=== PATIENT | female | born 1965 | race Two or more races ===

== ENCOUNTER 2019-09-17 19:28 | Inpatient (IN) | payer MEDICARE, OTHER ==
[~2019-09-17] VITALS: Ht 157.5 cm; Wt 56.9 kg
[2019-09-17] MEDS ORDERED: KETOROLAC TROMETHAMINE 15 MG/ML VIAL ONE (19:43)
[2019-09-17] MEDS ORDERED: ONDANSETRON HCL/PF 4 MG/2 ML VIAL ONE (19:43)
--- NOTE | 2019-09-17 19:45 | NUR ---
PT AAOX3. [id number]. PER RA PT HAD SYNCOPAL EPISODE FOUND DOWN IN BATHRROM COVERED WITH VOMIT. UPON ASSESSMTN RR EVEN AND UNLABORED, NO NEURO DEFICIT, PERRLA. SKIN WARM AND INTACT. PLACED IN GOWN AND ON MONITOR. MD AT BEDSIDE FOR EVAL. WILL CONTINUE TO MONITOR. VSS.
--- NOTE | 2019-09-17 19:52 | NUR ---
FLUDIS INITITATED, MEDS GIVE, AWAITING URINE SAMPLE.
[2019-09-17] MEDS ORDERED: KETOROLAC TROMETHAMINE INJ 30 MG/ML VIAL IV ONE (20:00)
[2019-09-17] MEDS ORDERED: IV NS 0.9% 1,000 ML BAG IV ONE (20:00)
[2019-09-17] MEDS ORDERED: ONDANSETRON HCL/PF 4 MG/2 ML VIAL IVP ONE (20:00)
--- NOTE | 2019-09-17 20:04 | NUR ---
BROUGHT TO CT
--- NOTE | 2019-09-17 20:05 | NUR ---
Nola rosa in [place] - 09/17/19 at 2015 by JIM [employer] HUMANITIES TEACHER AT BEDSIDE FOR LABS
--- NOTE | 2019-09-17 20:15 | NUR ---
BACK FROM CT
[2019-09-17 20:25] LABS: BASOPHILS # (AUTO) 0.1 /CMM (0.0-0.2); BASOPHILS % (AUTO) 1.4 % (0.0-2.0); EOSINOPHILS % (AUTO) 2.2 % (0.0-6.0); HEMATOCRIT 41 % (33-45); HEMOGLOBIN 13.2 g/dL (11.5-14.8); LYMPHOCYTES # (AUTO) 1.2 /CMM (0.8-4.8); LYMPHOCYTES % (AUTO) 22.9 % (20.0-44.0); MEAN CORPUSCULAR HGB CONC 33 g/dl (31.0-36.0); MEAN CORPUSCULAR VOLUME 86 fL (82-100); MONOCYTES # (AUTO) 0.4 /CMM (0.1-1.30); MONOCYTES % (AUTO) 6.8 % (2.0-12.0); NEUTROPHILS # (AUTO) 3.6 /CMM (1.8-8.9); NEUTROPHILS % (AUTO) 66.7 % (43.0-81.0); PLATELET COUNT (AUTO) 210 /CMM (150-450); RED BLOOD CELL COUNT(AUTO) 4.76 MIL/uL (4.0-5.2); WHITE BLOOD COUNT (AUTO) 5.4 K/uL (4.3-11.0)
[2019-09-17 20:36] LABS: CALCIUM, SERUM 9.1 mg/dL (8.5-10.1); CARBON DIOXIDE 31 mmol/L (21-32); CHLORIDE 108 mmol/L (98-107); CREATININE 1.1 mg/dL (0.6-1.3); GLUCOSE 121 mg/dL (74-106); POTASSIUM 3.9 mmol/L (3.5-5.1); SODIUM SERUM 146 mmol/L (136-145); UREA NITROGEN, BLOOD 14 mg/dL (7-18)
[2019-09-17 20:49] LABS: ALANINE AMINOTRANSFERASE 26 U/L (12-78); ALBUMIN 3.9 g/dL (3.4-5.0); ALKALINE PHOSPHATASE 98 U/L (46-116); ASPARTATE AMINOTRANSFERASE 19 U/L (15-37); BILIRUBIN,TOTAL 0.2 mg/dL (0.2-1.0); LIPASE 108 U/L (73-393); TOTAL PROTEIN, SERUM 7.5 g/dL (6.4-8.2)
[2019-09-17] MEDS ORDERED: FLUO20CA42 PO (21:19)
[2019-09-17] MEDS ORDERED: HYDR-3895 PO (21:19)
--- NOTE | 2019-09-17 21:19 | NUR ---
BED 304-2
[2019-09-17] MEDS ORDERED: RISP1TAB27 PO (21:20)
[2019-09-17] MEDS ORDERED: LORAZEPAM INJ 2 MG/ML VIAL ONE (21:22)
--- NOTE | 2019-09-17 21:27 | NUR ---
PT UNABLE TO PROVIDE URINE SAMPLE. REFUSES CATHETER.
[2019-09-17] MEDS ORDERED: LORAZEPAM INJ 2 MG/ML VIAL IV ONE (21:30)
--- NOTE | 2019-09-17 21:35 | NUR ---
REPORT GIVEN TO SHALINI BUENROSTRO FOR AMELIA
[2019-09-17 21:42] VITALS: BP 98/59
--- NOTE | 2019-09-17 21:45 | NUR ---
CLINICAL PROGRAM MANAGERSENIOR IT SPECIALIST NOTES PATIENT ARRIVED ON UNIT VIA GURNEY FROM THE ER AT 2142 IN STABLE CONDITION. PATIENT UNABLE TO AMBULATE AT THIS TIME. A/O X 3-4. ON ROOM AIR. PATIENT DENIES ANY SOB OR PAIN AT THIS TIME. TELE MONITOR READING SINUS RHYTHM, HEART RATE 71. IV PRESENT ON LEFT AC, SIZE 18, INTACT & PATENT, NS RUNNING BY GRAVITY. SKIN ASSESSMENT COMPLETED, NO PROBLEMS NOTED. BELONGINGS LIST COMPLETED, SIGNED, AND PLACED IN CHART. SISTER, DOROTHY, BROUGHT PATIENT'S PURSE HOME. MED RECON AND MRSA SURVEILLANCE COMPLETED IN THE ER. SAFETY MEASURES IN PLACE. BED LOCKED, ALARM ON, SEMI-RABAGO'S POSITION, CALL LIGHT WITHIN REACH. WILL CONTINUE TO MONITOR.
--- NOTE | 2019-09-17 21:57 | NUR ---
PT TRANSFERED PER ACLS PROTOCOL.
[2019-09-17 22:00] VITALS: BP 98/59
[2019-09-17] MEDS ORDERED: MAGNESIUM HYDROXIDE 30 ML UDC PO PRN (22:00)
[2019-09-17] MEDS ORDERED: ACETAMINOPHEN 325 MG TABLET PO PRN (22:00)
[2019-09-17] MEDS ORDERED: Z GUARD REMEDY 2 OZ OINT TP PRN (22:00)
[2019-09-17] MEDS ORDERED: MAG HYDROX/AL HYDROX/SIMETH 30 ML UDC PO PRN (22:00)
[2019-09-17] MEDS ORDERED: IV NS 0.9% 1,000 ML IV ONE (22:00)
[2019-09-17] MEDS ORDERED: ONDANSETRON HCL/PF 4 MG/2 ML VIAL IVP PRN (22:00)
[2019-09-18] VITALS: BP 92/45
[2019-09-18] MEDS ORDERED: IV NS 0.9% 1,000 ML IV SCH
[2019-09-18 04:00] VITALS: BP 99/53
[2019-09-18 06:25] LABS: BASOPHILS # (AUTO) 0.1 /CMM (0.0-0.2); BASOPHILS % (AUTO) 0.9 % (0.0-2.0); HEMATOCRIT 33 % (33-45); LYMPHOCYTES # (AUTO) 2.1 /CMM (0.8-4.8); LYMPHOCYTES % (AUTO) 32.3 % (20.0-44.0); MEAN CORPUSCULAR HGB CONC 33 g/dl (31.0-36.0); MEAN CORPUSCULAR VOLUME 85 fL (82-100); MONOCYTES # (AUTO) 0.4 /CMM (0.1-1.30); MONOCYTES % (AUTO) 5.8 % (2.0-12.0); NEUTROPHILS # (AUTO) 3.9 /CMM (1.8-8.9); PLATELET COUNT (AUTO) 165 /CMM (150-450); RED BLOOD CELL COUNT(AUTO) 3.92 MIL/uL (4.0-5.2); WHITE BLOOD COUNT (AUTO) 6.5 K/uL (4.3-11.0)
[2019-09-18 06:50] LABS: CREATININE 0.6 mg/dL (0.6-1.3); MAGNESIUM 1.8 mg/dL (1.8-2.4); PHOSPHORUS 3.7 mg/dL (2.5-4.9); POTASSIUM 3.6 mmol/L (3.5-5.1)
--- NOTE | 2019-09-18 07:29 | NUR ---
RESIDENTIAL APPRAISER CLOSING NOTES PATIENT AWAKE IN BED. A/O X3-4. ON ROOM AIR. NO C/O OF SOB OR PAIN AT THIS TIME. IV PRESENT ON LEFT AC, SIZE 18, INTACT & PATENT, NS RUNNING AT 125 ML/HR. TELE MONITOR READING SINUS RHYTHM, HEART RATE 62. SAFETY MEASURES IN PLACE. BED LOCKED, ALARM ON, SIDE RAILS X2, CALL LIGHT WITHIN REACH. WILL ENDORSE TO DAY SHIFT NURSE TO FOLLOW PLAN OF CARE.
[2019-09-18] MEDS: HYDROCODONE/APAP 5/325MG 1 EACH TABLET PO PRN ×2 (07:46→14:20)
--- NOTE | 2019-09-18 08:00 | NUR ---
KEY OPERATOR OPENING NOTES RECIEVED PATIENT AWAKE IN BED. A/O X3-4. ON ROOM AIR. NO CARDIAC OR RESP DISTRESS NOTED. NOSOB. . IV ACCESS NOTED ON LEFT AC, SIZE 18, INTACT & PATENT, FLUSHING WELL. NO S/S OF INFECTION OR INFILTRATION NOTED. NS RUNNING AT 125 ML/HR. TELE MONITOR READING SINUS RHYTHM, HEART RATE 75. SAFETY MEASURES IN PLACE. BED LOCKED, ALARM ON, SIDE RAILS X2, CALL LIGHT WITHIN REACH.
[2019-09-18] MEDS: FLUOXETINE HCL 20 MG CAPSULE PO SCH (08:13)
[2019-09-18] MEDS: hydrOXYzine PAMOATE 25 MG CAPSULE PO SCH (08:13)
[2019-09-18] MEDS: risperiDONE 1 MG TABLET PO SCH (08:13)
[2019-09-18] MEDS ORDERED: INFLUENZA VACCINE 2019-20 0.5 ML DISP.SYRIN IM ONE (09:00)
--- NOTE | 2019-09-18 09:00 | NUR ---
FLU VACCINE FLU VACCINE ADMINISTERED. PT GAVE CONSENT.
--- NOTE | 2019-09-18 10:30 | NUR ---
BLADDER SCAN NOTIFIED NOEMI DIXON THAT PT HAS NOT VOIDED SINCE 7AM. PER NOEMI TO DO BLADDER SCAN. BLADDER SCAN DONE >250ML URINE NOTED
[2019-09-18] MEDS: IV NS 0.9% 1,000 ML IV PRN (10:35)
--- NOTE | 2019-09-18 10:49 | NUR ---
FELT DYEING MACHINE TENDER OPENING NOTES RECIEVED PATIENT AWAKE IN BED. A/O X3-4. ON ROOM AIR. NO CARDIAC OR RESP DISTRESS NOTED. NOSOB. . IV ACCESS NOTED ON LEFT AC, SIZE 18, INTACT & PATENT, FLUSHING WELL. NO S/S OF INFECTION OR INFILTRATION NOTED. NS RUNNING AT 125 ML/HR. TELE MONITOR READING SINUS RHYTHM, HEART RATE 75. SAFETY MEASURES IN PLACE. BED LOCKED, ALARM ON, SIDE RAILS X2, CALL LIGHT WITHIN REACH. Addendum: 09/18/19 at 1051 by DEVAN GUTIERREZ RN DISREGARD ABOVE NOTE. TIME IS INCORRECT
--- NOTE | 2019-09-18 11:00 | NUR ---
STRAIGHT CATH NOTIFIED NOEMI GUTIERREZ RE: BLADDER SCAN RESULTS. STRAIGHT CATH DONE X1. 50ML URINE OUTPUT. URINE COLLECTED FOR UACS.
[2019-09-18 12:00] VITALS: BP 89/51
[2019-09-18 14:35] LABS: APPEARANCE,URINE CLEAR (CLEAR); BILIRUBIN,URINE NEGATIVE (NEGATIVE); BLOOD, URINE NEGATIVE Ery/uL (NEGATIVE); COLOR,URINE YELLOW (YELLOW); KETONES,URINE NEGATIVE (NEGATIVE); LEUKOCYTE ESTERASE ,URINE NEGATIVE (NEGATIVE); NITRITE, URINE NEGATIVE (NEGATIVE); PH,URINE 7.5 (5.0-8.0); PROTEIN,URINE TRACE mg/dl (NEGATIVE); UGLUCOSE 100 MG/DL mg/dL (NEGATIVE); UROBILINOGEN,URINE 0.2 EU/dL (0.2)
[2019-09-18 14:50] LABS: BACTERIA,URINE Few /HPF (None Seen); SQUAMOUS EPITHELIAL CELL,UR Few /HPF (None Seen); WBC,URINE 0-2 /HPF (0-3)
--- NOTE | 2019-09-18 15:00 | NUR ---
URINE OUTPUT ASSISTED PT TO BEDPAN. PT HAD 300ML URINE OUTPUT.
[2019-09-18 16:05] VITALS: BP 86/55
--- NOTE | 2019-09-18 18:37 | NUR ---
SERVER ENGINEER CLOSING NOTES PATIENT IN AWAKE IN BED. A/O X3-4. ON ROOM AIR. NO CARDIAC OR RESP DISTRESS NOTED. NO SOB. . IV ACCESS NOTED ON R WRIST G22. , INTACT & PATENT, FLUSHING WELL. NO S/S OF INFECTION OR INFILTRATION NOTED. NS RUNNING AT 125 ML/HR. TELE MONITOR READING SINUS RHYTHM, HEART RATE 75. SAFETY MEASURES IN PLACE. BED LOCKED, ALARM ON, SIDE RAILS X2, CALL LIGHT WITHIN REACH.
--- NOTE | 2019-09-18 19:35 | NUR ---
MATERIALS ASSISTANT OPENING NOTES PATIENT RECEIVED RESTINGI N BED A/O X 3-4. STABLE ON RA WITH BREATHING EVEN AND UNLABORED, NO SOB NOTED. NO SIGNS OF ACUTE DISTRESS. NO CURRENT COMPLAINTS OF PAIN OR DISCOMFORT. TELE MONITOR READING SR. IV LOCATED ON R WRIST #24 RUNNING NS @ 125 ML/HR. SAFETY PRECAUTIONS IN PLACE WITH BREATHING EVEN AND UNLABORED, CALL LIGHT WITHIN REACH, BREAKS ON, SIDE RAILS UP. WILL CONTINUE TO MONITOR.
[2019-09-18 20:00] VITALS: BP 91/60
--- NOTE | 2019-09-18 22:23 | NUR ---
SCIENTIFIC RESEARCH ASSOCIATE NOTES PATIENT COMPLAINING OF LOWER ABDOMINAL DISCOMFORT, CLAIMED SHE HAD NOT PEED SINCE BEFORE DINNER AROUND 6PM. BLADDER SCANNER DONE, SHOWED URINE RETENTION OF >893. PAGED MD ROMAN AND ORDERED TO STRAIGHT CATH X1.
--- NOTE | 2019-09-18 22:43 | NUR ---
LIAISON ENGINEER NOTES STRAIGHT CATH DONE, 1000L OF CLEAR YELLOW URINE DRAINED. PATIENT FEELS MORE COMFORTABLE AND RELIEVED. WILL CONTINUE TO MONITOR.
[2019-09-19] VITALS: BP 95/60
[2019-09-19] MEDS: IV NS 0.9% 1,000 ML IV PRN (02:13)
[2019-09-19 04:00] VITALS: BP 91/54
--- NOTE | 2019-09-19 06:26 | NUR ---
PROFESSIONAL CASTER CLOSING NOTES PATIENT RESTING IN BED A/O X 3-4. STABLE ON RA WITH BREATHING EVEN AND UNLABORED, NO SOB NOTED. NO SIGNS OF ACUTE DISTRESS. NO CURRENT COMPLAINTS OF PAIN OR DISCOMFORT. TELE MONITOR READING SR. IV LOCATED ON R WRIST #24 RUNNING NS @ 125 ML/HR. SAFETY PRECAUTIONS IN PLACE WITH BREATHING EVEN AND UNLABORED, CALL LIGHT WITHIN REACH, BREAKS ON, SIDE RAILS UP. ALL NEEDS WERE ATTENDED TO AND PATIENT WAS KEPT CLEAN AND DRY ALL NIGHT. WILL ENDORSE TO ONCOMING SHIFT ABOUT AMELIA.
[2019-09-19 06:46] LABS: BASOPHILS % (AUTO) 0.8 % (0.0-2.0); EOSINOPHILS % (AUTO) 3.4 % (0.0-6.0); HEMATOCRIT 32 % (33-45); HEMOGLOBIN 10.6 g/dL (11.5-14.8); LYMPHOCYTES # (AUTO) 1.5 /CMM (0.8-4.8); LYMPHOCYTES % (AUTO) 35.7 % (20.0-44.0); MEAN CORPUSCULAR HGB CONC 33 g/dl (31.0-36.0); MEAN CORPUSCULAR VOLUME 86 fL (82-100); MONOCYTES # (AUTO) 0.3 /CMM (0.1-1.30); MONOCYTES % (AUTO) 7.2 % (2.0-12.0); NEUTROPHILS # (AUTO) 2.2 /CMM (1.8-8.9); NEUTROPHILS % (AUTO) 52.9 % (43.0-81.0); PLATELET COUNT (AUTO) 140 /CMM (150-450); RED BLOOD CELL COUNT(AUTO) 3.76 MIL/uL (4.0-5.2); WHITE BLOOD COUNT (AUTO) 4.2 K/uL (4.3-11.0)
[2019-09-19 07:00] VITALS: BP_SYST 101; BP_SYST 90; BP_SYST 97; BP_DIAS 61; BP_DIAS 67; BP_DIAS 68
--- NOTE | 2019-09-19 07:25 | NUR ---
ELECTROMECHANIC OPENING NOTES RECEIVED PT IN BED, ASLEEP. EASILY AROUSED, A/O X3. PT TOLERATING RA, WITH NO ACUTE RESPIRATORY DISTRESS NOTED. ON TELEMONITORING WITH SB 57. PT DENIES ANY PAIN OR DISCOMFORT AT THIS TIME WEEL. PT ALSO DENIES ANY CONCERNS OR QUESTION AT THIS TIME. IVF NS AT 125ML/HR TO RIGHT WRIST G24, INTACT AND INFUSING WELL. PT COMFORTABLE IN BED AT THIS TIME. PT'S BED IN LOWEST, LOCKED POSITION WITH SRX3. CALL LIGHT KEPT WITHIN REACH. WILL CONTINUE PLAN OF CARE.
[2019-09-19 07:27] LABS: CALCIUM, SERUM 7.8 mg/dL (8.5-10.1); CREATININE 0.7 mg/dL (0.6-1.3); POTASSIUM 4.2 mmol/L (3.5-5.1)
[2019-09-19 08:00] VITALS: BP 90/61
[2019-09-19] MEDS: FLUOXETINE HCL 20 MG CAPSULE PO SCH (08:33)
[2019-09-19] MEDS: hydrOXYzine PAMOATE 25 MG CAPSULE PO SCH (08:33)
[2019-09-19] MEDS: risperiDONE 1 MG TABLET PO SCH (08:33)
--- NOTE | 2019-09-19 08:37 | NUR ---
PACKING MACHINE CAN FEEDER NOTES PT SEEN AND EVALUATED [place] HOSPITALIST/CN/WINDOWS SERVER ENGINEER, PT MADE AWARE OF PLAN TODAY. PT ADVISED TO FOLLOW UP WITH OUTPATIENT PSYCHOLOGIST/PSYCHIATRIST AND PCP. PLAN FOR DISCHARGE TODAY, PT AWARE.
--- NOTE | 2019-09-19 10:31 | NUR ---
MATERIAL FLOW ANALYST NOTES CALLED AND LEFT A MESSAGE VIA PHONE FOR SISTER/DOROTHY REGARDING PT'S DISCHARGE.
[2019-09-19 15:51] VITALS: BP 85/49
--- NOTE | 2019-09-19 17:23 | NUR ---
CUP TRIMMING MACHINE OPERATOR NOTES PT TO GO HOME. PT A/O X3-4. PT TOLERATING RA, WITH NO ACUTE RESPIRATORY DISTRESS NOTED. PT DENIES ANY PAIN OR DISCOMFORT AT THIS TIME WELL. PT AND SISTER ALSO DENIES ANY CONCERNS OR QUESTION AT THE TIME OF DISCHARGE. PIV TO R WRIST G22, REMOVED AND PRESSURE DRESSING APPLIED. ALL NEEDS AND CARE ATTENDED. DISCHARGE INSTRUCTIONS AND INVENTORY LIST WERE REVIEWED AND SIGNED BY PT, WITNESSED BY SISTER AT BEDSIDE. VS STABLE AND RECORDED. SKIN INTACT, NO PICTURES TAKEN AND FILED. HOSPITALIST/CN/BIOINFORMATICIST AND CN/KA AWARE OF DISCHARGE. PT LEFT THE UNIT AT 1720, ESCORTED BY USER EXPERIENCE DEVELOPER TO THE LOBBY.
== END 2019-09-19 17:20 | disposition home or self-care (01) | DRG 74 ==
LOC: ER 19:31 → TELE 21:23
PROVIDERS: ADMIT Family Medicine; ATTEND Nurse Practitioner Acute Care
DX: G90.8 Other disorders of autonomic nervous system (principal); E87.0 Hyperosmolality and hypernatremia; F33.3 Major depressive disorder, recurrent, severe with psychotic symptoms; E86.1 Hypovolemia; R73.9 Hyperglycemia, unspecified; I95.1 Orthostatic hypotension; Z87.440 Personal history of urinary (tract) infections; R33.9 Retention of urine, unspecified; F39 Unspecified mood [affective] disorder
CPT/HCPCS: 36415; 70450-TC; 71045-TC; 72170-TC; 73130-TC; 80048-TC; 80061-TC; 80076-TC; 81000-TC; 83690-TC; 83735-TC; 84100-TC; 84484-TC; 85025-TC; 85730-TC; 87081-TC; 87086-TC; 93307-TC; 93880-TC; 97530-TC; G0378; G0480; J1885; J2060; J2405; J3490; J7030; Q0177; Q2036

== ENCOUNTER 2020-09-05 20:50 | Inpatient (IN) | payer MEDICARE, OTHER ==
[~2020-09-05] VITALS: Ht 165.1 cm; Wt 63.5 kg
[~2020-09-05 20:50] MED LIST: FLUO20CA42 PO; HYDR-3895 PO; RISP1TAB97 PO
--- NOTE | 2020-09-05 20:51 | NUR ---
PT DEBBIE FROM THE [facility] FOR MEDICAL CLEARANCE. PT PLACED ON HOLD FOR GD AT 1954. PER HOLD PT DOES NOT SPEAK WHEN SPOKEN TO AND IS NON COMPLAINT. ALSO, NOT TAKING MEDICATIONS AND WAS FOUND TRYING TO LEAVE THE FACILITY. UPON ASSESSMENT PT AMBULATORY, PLACED IN BED 10 ON MONITOR, AND PULSE OX. NO ACUTE DISTRESS NOTED. AWAITING ORDERS.
[2020-09-05 22:17] LABS: BASOPHILS # (AUTO) 0.1 /CMM (0.0-0.2); EOSINOPHILS % (AUTO) 1.8 % (0.0-6.0); HEMATOCRIT 37 % (33-45); HEMOGLOBIN 11.8 g/dL (11.5-14.8); LYMPHOCYTES # (AUTO) 1.4 /CMM (0.8-4.8); LYMPHOCYTES % (AUTO) 25.7 % (20.0-44.0); MEAN CORPUSCULAR HGB CONC 32 g/dl (31.0-36.0); MEAN CORPUSCULAR VOLUME 84 fL (82-100); MONOCYTES # (AUTO) 0.4 /CMM (0.1-1.30); MONOCYTES % (AUTO) 7.7 % (2.0-12.0); NEUTROPHILS # (AUTO) 3.4 /CMM (1.8-8.9); NEUTROPHILS % (AUTO) 63.8 % (43.0-81.0); PLATELET COUNT (AUTO) 223 /CMM (150-450); RED BLOOD CELL COUNT(AUTO) 4.33 MIL/uL (4.0-5.2); WHITE BLOOD COUNT (AUTO) 5.4 K/uL (4.3-11.0)
[2020-09-05 22:27] LABS: CALCIUM, SERUM 8.5 mg/dL (8.5-10.1); CARBON DIOXIDE 31 mmol/L (21-32); CHLORIDE 104 mmol/L (98-107); CREATININE 0.7 mg/dL (0.6-1.3); GLUCOSE 94 mg/dL (74-106); POTASSIUM 4.2 mmol/L (3.5-5.1); SODIUM SERUM 141 mmol/L (136-145); UREA NITROGEN, BLOOD 13 mg/dL (7-18)
[2020-09-05 22:32] LABS: ALANINE AMINOTRANSFERASE 24 U/L (12-78); ALBUMIN 3.4 g/dL (3.4-5.0); ALCOHOL, BLOOD < 3 mg/dL (0-0); ALKALINE PHOSPHATASE 122 U/L (46-116); ASPARTATE AMINOTRANSFERASE 16 U/L (15-37); BILIRUBIN,DIRECT 0.1 mg/dL (0.0-0.2); BILIRUBIN,TOTAL 0.1 mg/dL (0.2-1.0); TOTAL PROTEIN, SERUM 7.2 g/dL (6.4-8.2)
[2020-09-05 22:33] LABS: ACETAMINOPHEN < 2 ug/ml (10-30)
[2020-09-05 22:38] LABS: BILIRUBIN,URINE Negative (NEGATIVE); COLOR,URINE YELLOW (YELLOW); LEUKOCYTE ESTERASE ,URINE Moderate (NEGATIVE); NITRITE, URINE Negative (NEGATIVE); PH,URINE 5.5 (5.0-8.0); PROTEIN,URINE Negative (NEGATIVE); UGLUCOSE Negative (NEGATIVE); UROBILINOGEN,URINE 0.2 EU/dL (0.2)
--- NOTE | 2020-09-05 22:40 | NUR ---
COVID SWAB COLLECTED, CALLED LAB FOR FREIGHT REPRESENTATIVE
[2020-09-05 22:45] LABS: BACTERIA,URINE 2+ /HPF (None Seen); RBC,URINE NONE SEEN /HPF (0-2); SQUAMOUS EPITHELIAL CELL,UR Few /HPF (None Seen); WBC,URINE 21-50 /HPF (0-3)
--- NOTE | 2020-09-06 00:13 | NUR ---
REPORT GIVEN TO GIRMA ROGERS RN FOR AMELIA
[2020-09-06 00:40] VITALS: BP 109/63
--- NOTE | 2020-09-06 00:40 | NUR ---
GPS RN-ADMISSION NOTES: ADMITTED A 55-YR OLD FEMALE, FROM THE [facility]. ADMITTED ON 5150 FOR GD. PER HOLD, PATIENT WAS NOT COMPLIANT AND STARED BLANKLY INTO SPACE. PATIENT HAS NOT BEEN EATING OR TAKING MEDS. PT TOOK THE SCREEN OFF HER WINDOW ON THE 3RD FLOOR AND TOLD THE AID SHE WANTED TO . UPON FACE TO FACE ASSESSMENT, PATIENT IS A/OX2, DEPRESSED, NO VERBAL RESPONSE WHEN PT ASKED. OFFERED SNACKS/FLUIDS PT REFUSED. PT WAS ADVISED OF HER HOLD. PT'S RIGHTS HANDBOOK AND A GUIDE TO PRESCRIPTION MEDICATIONS GIVEN. IN NO APPARENT DISTRESS NOTED. BELONGINGS WERE INVENTORIED AND CHECKED FOR CONTRABAND. PT. IS UNDER THE PSYCHIATRIC CARE OF DR. PAULINE GONZALEZ, AND UNDER THE MEDICAL CARE OF DR. AGARWAL. PT REFUSED FULL BODY SKIN ASSESSMENT. PT REFUSING TO REMOVE HER EARRINGS AND RINGS. DENIES PAIN OR DISCOMFORT AT THIS TIME. SAFETY PRECAUTIONS IN PLACE. BED IN LOCKED AND IN LOWEST POSITION. SIDE RAILS UP X2. WILL CONTINUE TO MONITOR Q15 MIN ROUNDS FOR SAFETY AND BEHAVIOR. Addendum: 09/06/20 at 0223 by TORO VERGARA RN WHEN PATIENT ASKED WHEN SHE WAS ABLE TO RECEIVE HER FLU VACCINE, PATIENT WAS POINTED HER RIGHT DELTOID AND THEN SHE NODDED. Addendum: 09/06/20 at 0535 by [address]O [address] RN DR[address] AGARWAL MADE AWARE OF THE ADMISSION.
[2020-09-06] MEDS ORDERED: LORAZEPAM 0.5 MG TABLET PO PRN (01:00)
[2020-09-06] MEDS ORDERED: ACETAMINOPHEN 325 MG TABLET PO PRN (01:00)
[2020-09-06] MEDS ORDERED: MAGNESIUM HYDROXIDE 30 ML UDC PO PRN (01:00)
[2020-09-06] MEDS ORDERED: MAG HYDROX/AL HYDROX/SIMETH 30 ML UDC PO PRN (01:00)
[2020-09-06] MEDS ORDERED: BLOOD SUGAR DIAGNOSTIC 1 EACH STRIP IN ONE (01:00)
[2020-09-06] MEDS ORDERED: TEMAZEPAM 7.5 MG CAPSULE PO PRN (01:00)
[2020-09-06 07:56] LABS: CREATININE 0.6 mg/dL (0.6-1.3)
[2020-09-06 08:00] VITALS: BP 100/55
--- NOTE | 2020-09-06 12:15 | NUR ---
gps credit support counselor: md visit dr. rome here and reminded md that her medications needs to be reconciled, stated, "i will do it."
--- NOTE | 2020-09-06 12:45 | NUR ---
House Call MD: JOSEPH received a call from Felicia [phone]) from [facility] who stated that she wanted to know the pts behaviors and current discharge plan. JOSEPH stated that there is no discharge plan as of this moment and will inform her when she has one.
[2020-09-06] MEDS: CEPHALEXIN MONOHYDRATE 500 MG CAPSULE PO SCH ×2 (13:28→21:00)
--- NOTE | 2020-09-06 14:44 | NUR ---
Facility Contact: Elsi Sosa ([phone]), stock plan administrator from [employer], contacted the SW and expressed the multiple reasons why the pt is deemed inappropriate for their community. JOSEPH stated that she would work on securing appropriate placement. Addendum: 09/06/20 at 1451 by JOSEPH STYLES Elsi Sosa ([phone])
[2020-09-06 16:00] VITALS: BP 102/54
--- NOTE | 2020-09-06 19:20 | NUR ---
RN NOTES, PATIENT AMBULATING IN HALLWAY, TALKING, SINGING AND LAUGHING, TALKING NONSENSE PHRASES, NO DISTRESS NOTED, WILL CONTINUE TO MONITOR CLOSELY.
[2020-09-06 20:27] VITALS: BP 91/52
[2020-09-06] MEDS: risperiDONE 1 MG TABLET PO SCH (21:00)
--- NOTE | 2020-09-06 21:00 | NUR ---
RN NOTES, PATIENT REFUSED ANTIBIOTIC KEFLEX AT THIS TIME, EXPLAINED RISKS AND BENEFITS, STILL REFUSED.
--- NOTE | 2020-09-06 22:19 | NUR ---
RN NOTES, PATIENT REFUSED RISPERIDONE AT THIS TIME, EXPLAINED RISKS AND BENEFITS, STILL REFUSED.
--- NOTE | 2020-09-07 06:49 | NUR ---
RN NOTES, PATIENT WITH NO CHANGE IN CONDITION DURING THE SHIFT, WITH FLAT AFFECT, REFUSED TO ANSWER QUESTIONS, REFUSED MEDICATION, WITH ADEQUATE HOURS OF SLEEP, NO DISTRESS NOTED, WILL ENDORSE CONTINUITY OF CARE TO ONCOMING NURSE.
[2020-09-07 08:00] VITALS: BP 94/62
[2020-09-07] MEDS: risperiDONE 1 MG TABLET PO SCH ×2 (08:58→17:00)
[2020-09-07] MEDS: FLUOXETINE HCL 20 MG CAPSULE PO SCH (08:59)
[2020-09-07] MEDS: CEPHALEXIN MONOHYDRATE 500 MG CAPSULE PO SCH ×2 (08:59→21:27)
[2020-09-07 16:00] VITALS: BP 95/51
[2020-09-07 20:02] VITALS: BP 93/57
[2020-09-08 08:00] VITALS: BP 98/60
[2020-09-08] MEDS: risperiDONE 1 MG TABLET PO SCH ×2 (09:00→16:16)
[2020-09-08] MEDS: FLUOXETINE HCL 20 MG CAPSULE PO SCH (09:00)
[2020-09-08] MEDS: CEPHALEXIN MONOHYDRATE 500 MG CAPSULE PO SCH ×3 (09:00→21:00)
--- NOTE | 2020-09-08 10:25 | NUR ---
Family Contact: SW contacted the pts sister, Naila ([phone]), twice and left voicemails stating that the SW would like to discuss the pts placement with her.
--- NOTE | 2020-09-08 14:40 | NUR ---
Initial Discharge Plan: Pt currently resides at the [facility] located at [address] [place] [address]. Per server administrator, Elsi Sosa ([phone]), pt cannot return. SW will work with the pt and the MD regarding appropriate discharge planning. SW will form a safe and proper discharge.
[2020-09-08 16:00] VITALS: BP 90/50
--- NOTE | 2020-09-08 16:09 | NUR ---
House Call MD: SW received a call from Felicia ([phone]) from [facility] MD who stated that she wanted an update regarding the pts current situation. 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 SW stated that she has been attempting to contact the pts sister but has been having difficulty. JOSEPH also expressed that the pt cannot return to the [facility] and therefore the SW is looking for alternative SNF placement. Felicia stated that she will provide the SW with some SNFs that the pts primary care physician follows to.
--- NOTE | 2020-09-08 19:30 | NUR ---
GPS RN NOTE, RECEIVED PATIENT AWAKE AND IN BED, NO S/S OR COMPLAINTS OF PAIN AT THIS TIME. PATIENT IS DISPLAYING NO S/S OF APPARENT DISTRESS AT THIS TIME. PATIENT BREATHING IS UNLABORED WITH EQUAL RISE AND FALL OF THE CHEST. PATIENT IS ALERT AND ORIENTED X 2 ON ROOM AIR. PATIENT IS SELECTIVE WITH MEDICATIONS, DEPRESSED, ISOLATIVE, SELECTIVELY MUTE, TEARFUL, AND UNCOOPERATIVE. PATIENT DENIES SUICIDAL AND HOMICIDAL IDEATIONS AT THIS TIME. PATIENT ASSISTED WITH TURNING AND REPOSITIONING Q2HR AND PRN FOR COMFORT AND CIRCULATION. PATIENT HAS NO NEEDS AT THIS TIME. PATIENT EDUCATED ON THE USE OF THE CALL SPANGLER. PATIENT BED SIDE RAILS UP X 2 FOR SAFETY. PATIENT BED IS LOCKED, LOW, WITH BED ALARM ON. WILL CONTINUE TO MONITOR THIS PATIENT Q15 MINUTES WITH THE HELP OF STAFF TO MAINTAIN SAFETY.
[2020-09-08 20:44] VITALS: BP 80/47
--- NOTE | 2020-09-08 21:23 | NUR ---
GPS RN NOTE, PATIENT REFUSED KEFLEX 500MG PO Q12HR SCHEDULED. OFFERED THREE TIMES AND STILL PATIENT REFUSED AND ONLY SHOOK HER HEAD NO THREE TIMES. EDUCATED PATIENT ON THE RISKS AND BENEFITS OF TAKING AND REFUSING KEFLEX. WILL CONTINUE TO MONITOR THIS PATIENT WITH THE HELP OF STAFF.
[2020-09-09 08:00] VITALS: BP 99/60
[2020-09-09] MEDS: FLUOXETINE HCL 20 MG CAPSULE PO SCH (08:24)
[2020-09-09] MEDS: CEPHALEXIN MONOHYDRATE 500 MG CAPSULE PO SCH ×2 (08:24→20:49)
[2020-09-09] MEDS: risperiDONE 1 MG TABLET PO SCH ×2 (08:24→16:55)
--- NOTE | 2020-09-09 08:30 | NUR ---
GPS RN NOTES PATIENT REFUSED ALL HER MORNING MEDS. OFFERED A FEW TIMES; PATIENT LOOKING QUIETLY AND SHAKES HER HEAD NO. EDUCATED PATIENT ON THE RISKS AND BENEFITS OF NOT TAKING HER MEDS. WILL CONTINUE TO MONITOR PATIENT.
[2020-09-09 16:00] VITALS: BP 90/53
--- NOTE | 2020-09-09 18:14 | NUR ---
GPS RN NOTES PATIENT STILL IN BED, ASLEEP.
[2020-09-09 20:26] VITALS: BP 101/57
--- NOTE | 2020-09-10 06:11 | NUR ---
GPS RN CLOSING NOTES: PATIENT LAYING ON BED SLEEPING. PATIENT SLEPT 6 HR THIS SHIFT. NO BEHAVIORAL ISSUES THIS SHIFT. NO S/S OF DISTRESS. RESPIRATION EVEN AND UNLABORED WITH EQUAL RISE AND FALL OF THE CHEST ON ROOM AIR. SAFETY PRECAUTION MAINTAINED, BED IN LOWEST POSITION AND LOCKED. Q15 MINUTES SAFETY ROUND CONTINUED. ALL PATIENT CARE NEEDS MET ANTICIPATED. WILL CONTINUE TO MONITOR PATIENT FOR MOOD, BEHAVIOR AND SAFETY AND ENDORSE TO AM SHIFT.
[2020-09-10 08:00] VITALS: BP 92/61
[2020-09-10] MEDS: FLUOXETINE HCL 20 MG CAPSULE PO SCH (09:00)
[2020-09-10] MEDS: CEPHALEXIN MONOHYDRATE 500 MG CAPSULE PO SCH ×2 (09:00→21:22)
[2020-09-10] MEDS: risperiDONE 1 MG TABLET PO SCH ×2 (09:00→17:59)
--- NOTE | 2020-09-10 12:10 | NUR ---
MARCO ANTONIO TRUONG MADE AWARE OF PATIENT BP THIS MORNING, INITIALLY SBP IN THE 70s, THEN RECHECKED IN THE SBP 90s. NO ORDERS RECEIVED
[2020-09-10 16:00] VITALS: BP 111/64
--- NOTE | 2020-09-10 19:00 | NUR ---
AM MEDS NON-ADMIN, PT REFUSED. PT ABLE TO TAKE RISPERIDAL MED AT 1700 ONCE RN EDUCATED PATIENT AND EXPLAINED THE ACTION OF MED.
[2020-09-10 20:54] VITALS: BP 95/56
[2020-09-11 08:00] VITALS: BP 91/56
[2020-09-11] MEDS: CEPHALEXIN MONOHYDRATE 500 MG CAPSULE PO SCH (08:36)
[2020-09-11] MEDS: FLUOXETINE HCL 20 MG CAPSULE PO SCH (08:36)
[2020-09-11] MEDS: risperiDONE 1 MG TABLET PO SCH ×2 (08:36→17:17)
[2020-09-11 16:00] VITALS: BP 89/48
[2020-09-11 19:57] VITALS: BP 90/50
[2020-09-12 08:00] VITALS: BP 98/54
[2020-09-12] MEDS: FLUOXETINE HCL 20 MG CAPSULE PO SCH (08:32)
[2020-09-12] MEDS: risperiDONE 1 MG TABLET PO SCH (08:32)
[2020-09-12] MEDS ORDERED: OLANZAPINE 5 MG TABLET PO SCH (14:00)
[2020-09-12] MEDS ORDERED: HALOPERIDOL LACTATE INJ 5 MG/ML VIAL IM PRN (14:30)
[2020-09-12] MEDS ORDERED: BENZTROPINE MESYLATE (2MG/2ML) 2 MG/2 ML AMPUL IM PRN (15:00)
[2020-09-12 16:00] VITALS: BP 93/58
--- NOTE | 2020-09-12 18:23 | NUR ---
RN NOTE PATIENT CALM AND SECLUDED THROUGHOUT MOST OF THE DAY. PATIENT REFUSED MORNING MEDICATIONS, AND REMAINED IN BED THROUGHOUT MOST OF DAY. AFTER CONVINCING PATIENT AGREED TO TAKE PO ZYPREXA. AFTER PO ZYPREXA PATIENT MORE COOPERATIVE, SPEAKING WITH STAFF, AND EATING 100% OF HER DINNER. END OF RN NOTES BN
[2020-09-12] MEDS: OLANZAPINE 5 MG TABLET PO SCH (20:00)
[2020-09-12 20:01] VITALS: BP 101/51
[2020-09-13 08:00] VITALS: BP 101/67
[2020-09-13] MEDS: FLUOXETINE HCL 20 MG CAPSULE PO SCH (08:47)
[2020-09-13] MEDS: OLANZAPINE 5 MG TABLET PO SCH ×2 (08:47→16:28)
--- NOTE | 2020-09-13 14:12 | NUR ---
House Call MD: JOSEPH received a call from Felicia ([phone]) from [facility] and SW informed her that the pt has been Reised and that once the pt begins to show improvement the SW can send out referrals to SNF. She stated that the MD would like to follow and mentioned a list of his SNFs which included [facility] so the SW stated she will send a referral there as the psychiatrist can follow as well.
--- NOTE | 2020-09-13 14:28 | NUR ---
Family Contact: SW contacted the pts sister, Naila ([phone]), and informed her that the pt was reised the previous day and once we start to see improvement the SW will send out a referral for a fdc facility where her psychiatrist and her medical doctor can follow. SW stated that she will be kept informed.
[2020-09-13 16:00] VITALS: BP 94/70
[2020-09-13 20:00] VITALS: BP 94/58
[2020-09-13] MEDS ORDERED: BENZTROPINE MESYLATE (2MG/2ML) 2 MG/2 ML AMPUL IM PRN (20:30)
[2020-09-13] MEDS ORDERED: HALOPERIDOL LACTATE INJ 5 MG/ML VIAL IM PRN (20:30)
[2020-09-13] MEDS: HALOPERIDOL 5 MG TABLET PO SCH (21:05)
[2020-09-13] MEDS: BENZTROPINE MESYLATE (1 MG) 1 MG TABLET PO SCH (21:06)
--- NOTE | 2020-09-13 21:48 | NUR ---
PATIENT REMAINS GUARDED, ASKING REPEATEDLY WHY SHE IS TAKING MEDICATIONS. MEDICATION EDUCATION PROVIDED, PATIENT AGREED TO TAKE SCHEDULED PO MEDS. PT HAS FLAT AFFECT, POOR EYE CONTACT. WILL CONTINUE MONITORING CLOSELY.
[2020-09-14 08:00] VITALS: BP 121/65
[2020-09-14] MEDS: FLUOXETINE HCL 20 MG CAPSULE PO SCH (08:09)
[2020-09-14] MEDS: BENZTROPINE MESYLATE (1 MG) 1 MG TABLET PO SCH ×2 (08:09→22:02)
[2020-09-14] MEDS: HALOPERIDOL 5 MG TABLET PO SCH ×2 (08:09→22:01)
--- NOTE | 2020-09-14 09:28 | NUR ---
SNF Referral: JOSEPH faxed a referral to [facility] with attn to Damon to the fax number: [phone].
--- NOTE | 2020-09-14 10:32 | NUR ---
SNF Contact: Damon ([phone]) contacted the SW and stated that the pt was accepted to [facility].
[2020-09-14 16:00] VITALS: BP 102/54
--- NOTE | 2020-09-14 19:20 | NUR ---
PT ALERT, RELAXING IN BED, OPENS EYES AND HAS A FLAT AFFECT. REFUSES TO SPEAK AND ANSWER QUESTIONS. NO S/S OF DISTRESS WILL CONTINUE TO MONITOR Addendum: 09/15/20 at 0658 by ABENA KYLE RN PT APPEARS TO BE DEPRESSED WITH A FLAT AFFECT. DOESN'T SPEAK OFTEN OR ANSWER QUESTIONS.
[2020-09-14 21:12] VITALS: BP 96/58
[2020-09-15] MEDS: BENZTROPINE MESYLATE (1 MG) 1 MG TABLET PO SCH ×2 (09:59→21:32)
[2020-09-15] MEDS: FLUOXETINE HCL 20 MG CAPSULE PO SCH (09:59)
[2020-09-15] MEDS: HALOPERIDOL 5 MG TABLET PO SCH ×2 (09:59→21:53)
[2020-09-15 16:00] VITALS: BP 130/73
--- NOTE | 2020-09-15 17:32 | NUR ---
Family Contact: SW contacted the pts sister, Naila ([phone]), and left her a voicemail that informed her that the pt was going to be discharged to [facility] and provided all of the information for the facility in the message.
[2020-09-15] MEDS ORDERED: HALOPERIDOL DECANOATE IM 100 MG/ML AMPUL IM ONE (18:00)
[2020-09-15 20:15] VITALS: BP 102/62
[2020-09-15 20:46] VITALS: BP 102/62
--- NOTE | 2020-09-15 21:14 | NUR ---
GPS RN NOTE PATIENT'S VITALS ARE 119/69, 55, 18, 97.5, 98% AT RA. NO C/O PAIN VERBALIZED AT THIS TIME. PATIENT HAD SNACKS & JUICE, TOLERATED WELL. WILL CONTINUE PLAN OF CARE
[2020-09-15 21:15] VITALS: BP 119/69
--- NOTE | 2020-09-16 07:47 | NUR ---
RN NOTE 2 NURSES ATTEMPTED TO COLLECT COVID 19 SPECIMEN, PATIENT IS DISCHARGING TO SNF BUT PATIENT STRONGLY REFUSED TO GET SPECIMEN COLLECTED. ENDORSED TO AM RN TO TRY TO COLLECT THE SPECIMEN.
[2020-09-16 08:00] VITALS: BP 92/56
[2020-09-16] MEDS: BENZTROPINE MESYLATE (1 MG) 1 MG TABLET PO SCH (09:58)
[2020-09-16] MEDS: HALOPERIDOL 5 MG TABLET PO SCH (09:58)
[2020-09-16] MEDS: FLUOXETINE HCL 20 MG CAPSULE PO SCH (09:59)
--- NOTE | 2020-09-16 09:59 | NUR ---
Discharge Note: Pt will be discharged to [facility] ([facility]) located at [address] [place] [address]; ([phone]). Pt will be transported via [facility] at 1PM. SW notified the pts sister, Naila ([phone]), about the placement. Pt agreed to the placement. Upon discharge, pt appears to be in a euthymic mood and presents with a flat affect. Pt denies suicidal and homicidal ideation and denies visual and auditory hallucinations. Pt appears to be alert and oriented x4 (time, place, self and situation). Pt appears to be well groomed and ambulatory with a steady gait. Pt will continue to follow up with psychiatrist, Dr. Carter, located at [address] [facility] [facility] [address] [place] [address]; and aluminum fabrication supervisor, Dr. Ibrahim, located at [address] [place], [address]; . Pt signed the Choice of Vendor form which was placed in the chart. The choice of vendor form and the multidisciplinary exit care form was done, printed, signed, and given to the patient.
--- NOTE | 2020-09-16 10:32 | NUR ---
RN NOTE PATIENT RECEIVED IN STABLE CONDITION. PATIENT COMPLIANT WITH MEDICATIONS THIS MORNING. PATIENT REQUIRED SOME COACHING TO HAVE COVID TEST DONE, BUT EVENTUALLY AGREED TO HAVE COVID TEST COMPLETED. PATIENT SAT UP TO EAT BREAKFAST AND SOCIALIZED WITH OTHERS IN THE MAIN ROOM. PATIENT VERBALIZED HER UNDERSTANDING OF ALL PATIENT TEACHINGS. ALL SAFETY MEASURES FOLLOWED AT THIS TIME. END RN NOTE. BN
--- NOTE | 2020-09-16 15:30 | NUR ---
NURSING DISCHARGE NOTE 55 YEAR OLD FEMALE DISCHARGE TO [facility] IN A STABLE CONDITION. COMPLIANT WITH MEDICATIONS, COOPERATIVE WITH TREATMENT PLANS. PATIENT DENIES SI/HI AND INSTRUCTED TO GO TO THE CLOSEST ER IF DEVELOPING SI/HI/. BEHAVIOR IMPROVED, PSYCHIATRIC TX PLANS MET, MEDICAL TX PLANS DIFFERED FOR CONTINUAL MONITORING. EDUCATED PATIENT ABOUT DEPRESSION AFTER CARE PLAN AND COPY PROVIDED. RETURNED PERSONAL BELONGINGS TO PATIENT. -MEDICATIONS RECONCILED WITH -REPORT GIVEN TO RN AT [facility] FOR CONTINUITY OF CARE. -PATIENT SIGNED DISCHARGE PAPERWORK. -PATIENT LEFT FREE OF WOUNDS. PT ;LEFT THE UNIT AT 1530 VIA AMBULANCE. END DISCHARGE NOTE. BN
== END 2020-09-16 15:20 | DRG 885 ==
LOC: ER 20:51 → GPS 22:41
PROVIDERS: ADMIT Psychiatry & Neurology Psychiatry; ATTEND Nurse Practitioner Acute Care
DX: F25.0 Schizoaffective disorder, bipolar type (principal); N39.0 Urinary tract infection, site not specified; F29 Unspecified psychosis not due to a substance or known physiological condition; F41.9 Anxiety disorder, unspecified; F32.9 Major depressive disorder, single episode, unspecified; Z79.899 Other long term (current) drug therapy; Z73.6 Limitation of activities due to disability; B96.89 Other specified bacterial agents as the cause of diseases classified elsewhere; Z59.0 Homelessness
CPT/HCPCS: 36415; 80048-TC; 80061-TC; 80076-TC; 81001; 82565-TC; 82962-TC; 85025-TC; 87081-TC; 87086-TC; G0480; J1631